=== PATIENT | male | born 1990 | race Two or more races ===

== ENCOUNTER 2019-01-17 00:08 | Emergency (ER) | payer BC, OTHER ==
[2019-01-17] MEDS ORDERED: Ibuprofen 600 MG Tab PO ONE (01:03)
--- NOTE | 2019-01-17 01:03 | EDM.PDOC ---
ED HPI GENERAL MEDICAL PROBLEM - General Chief Complaint: Upper Extremity Injury/Pain Stated Complaint: HAND INJURY Time Seen by Provider: 01/17/19 00:08 Source of Information: Reports: Patient History Limitations: Reports: No Limitations - History of Present Illness INITIAL COMMENTS - FREE TEXT/NARRATIVE: 28 y,o,w,m came to the ED due to pain at his right middle finger after he smashed his hand in a car door. Pt notice pain at his right middle finger and has pain bending it. No open wound. No swelling/edema. Nl CAP refill. Pt state, he feels occasionally "skin bulging out" at his right groin where he had a inguinal hernia repair i the past. The symptoms occur any when he is lifting heavy materials at work. Pt has no symptoms in his right groin now. No N/V/D no SOB or any other acute med issue. BP 126/87 RR 18 Pulse ox 98% on RA Temp 36.6 HR 84 Onset Date: 01/16/19 Onset Time: 21:00 Duration: Hour(s):, Constant Location: Reports: Upper Extremity, Right (middle finger) Quality: Reports: Ache, Dull, Pressure Severity: Mild Improves with: Reports: Rest Worsens with: Reports: Movement Context: Reports: Trauma Associated Symptoms: Reports: Other (S/p R ight inguinal hernia repair, wound discomfort) right hand mid finger Pain Score (Numeric/FACES): 8 - Related Data Allergies Allergy/AdvReac Type Severity Reaction Status Date / Time No Known Allergies Allergy Verified 05/29/18 07:50 Home Meds: Home Meds Acetaminophen/HYDROcodone [[place] 325-5 MG] 1 - 2 tab PO Q6H PRN #20 tab [Rx] Celecoxib [CeleBREX] 200 mg PO BID #10 cap 05/30/18 [Rx] Past Medical History - Past Health History Medical/Surgical History: Denies Medical/Surgical History HEENT History: Reports: Impaired Vision Cardiovascular History: Reports: None Respiratory History: Reports: None Gastrointestinal History: Reports: Gastritis Other Gastrointestinal History: STATES HAS HAD ULCER Genitourinary History: Reports: None Musculoskeletal History: Reports: Back Pain, Chronic Neurological History: Reports: None Psychiatric History: Reports: Anxiety Endocrine/Metabolic History: Reports: None Hematologic History: Reports: None Immunologic History: Reports: None Oncologic (Cancer) History: Reports: None Dermatologic History: Reports: None - Infectious Disease History Infectious Disease History: Reports: Chicken Pox - Past Surgical History Head Surgeries/Procedures: Reports: None GI Surgical History: Reports: None Social & Family History - Family History Family Medical History: Noncontributory - Tobacco Use Smoking Status *Q: Current Every Day Smoker Years of Tobacco use: 15 Packs/Tins Daily: 0.2 - Caffeine Use Caffeine Use: Reports: Soda Review of Systems - Review of Systems Review Of Systems: See Below Constitutional: Reports: No Symptoms Eyes: Reports: No Symptoms Ears: Reports: No Symptoms Nose: Reports: No Symptoms Mouth/Throat: Reports: No Symptoms Respiratory: Reports: No Symptoms Cardiovascular: Reports: No Symptoms GI/Abdominal: Reports: Other (discomfort R groin S/P inguinal hernia repair) Genitourinary: Reports: No Symptoms Musculoskeletal: Reports: Other (right middle finger pain) Skin: Reports: No Symptoms Neurological: Reports: No Symptoms Psychiatric: Reports: No Symptoms ED EXAM, GENERAL - Physical Exam Exam: See Below Exam Limited By: No Limitations General Appearance: Alert, WD/WN, Mild Distress Eye Exam: Bilateral Eye: Normal Inspection Ears: Normal External Exam, Normal Canal Ear Exam: Bilateral Ear: Auricle Normal Nose: Normal Inspection, Normal Mucosa, No Blood Throat/Mouth: Normal Lips, Normal Voice, No Airway Compromise Head: Atraumatic, Normocephalic Neck: Normal Inspection, Supple, Non-Tender, Full Range of Motion Respiratory/Chest: No Respiratory Distress, Lungs Clear, Normal Breath Sounds Cardiovascular: Normal Peripheral Pulses, Regular Rate, Rhythm, No Edema, No Gallop, No JVD, No Murmur, No Rub Peripheral Pulses: 2+: Radial (L) GI/Abdominal: Normal Bowel Sounds (Male) Exam: Other (tenerness right Groin S/P inguinal hernoa repair, well healed surgical scar) Rectal (Males) Exam: Deferred Back Exam: Normal Inspection, Full Range of Motion Extremities: Normal Inspection, Non-Tender, Normal Capillary Refill, Other ( pain right middlefinger with limitd ROM due to pain) Neurological: Alert, Oriented, CN II-XII Intact, Normal Cognition, Normal Gait Psychiatric: Normal Affect, Normal Mood Skin Exam: Warm, Dry, Intact, Normal Color, No Rash Lymphatic: No Adenopathy Course - Vital Signs Text/Narrative:: 28 y,o,w,m came to the ED due to pain at his right middle finger after he smashed his hand in a car door. Pt notice pain at his right middle finger and has pain bending it. No open wound. No swelling/edema. Nl CAP refill. Pt state, he feels occasionally "skin bulging out" at his right groin where he had a inguinal hernia repair i the past. The symptoms occur any when he is lifting heavy materials at work. Pt has no symptoms in his right groin now. No N/V/D no SOB or any other acute med issue. BP 126/87 RR 18 Pulse ox 98% on RA Temp 36.6 HR 84 PE: WNWD W M with right middle finger pain after trauma. Imaging: Right hand/middle finger: NAD, official repotrt is pending Labs: Not indicated Impression: Right middle finger sprain Tx: Ice, Motrin Reexam: Improved Plan: D/C with instructions. Last Recorded V/S: Last Vital Signs Temp 36.7 C 01/17/19 01:00 Pulse 70 01/17/19 01:00 Resp 17 01/17/19 01:00 BP 129/73 01/17/19 01:00 Pulse Ox 98 01/17/19 01:00 - Orders/Labs/Meds Orders: Active Orders 24 hr Category Date Time Status Hand Comp Min 3V Rt [CR] Stat Exams 01/17/19 00:17 Taken Meds: Medications Discontinued Medications Generic Name Dose Route Start Last Admin Trade Name Freq PRN Reason Stop Dose Admin Ibuprofen 600 mg 01/17/19 01:03 01/17/19 01:09 Motrin PO 01/17/19 01:04 600 mg ONETIME ONE Administration Departure - Departure Time of Disposition: 00:58 Disposition: Home, Self-Care 01 Condition: Good Clinical Impression: Sprain of right middle finger Qualifiers: Encounter type: initial encounter Sprain of finger site: interphalangeal joint Qualified Code(s): S63.632A - Sprain of interphalangeal joint of right middle finger, initial encounter - Discharge Information Instructions: Finger Sprain, Adult, [id number] Referrals: PCP,None [Primary Care Provider] - Tony Singleton MD [Physician] - Forms: ED Department Discharge, ED Return to Work/School Form Additional Instructions: Please apply ice to right hand, please take Motrin for pain, elevation, rest. Avoid heavy lifting using your right hand. Please f/u with Dr. Singleton regarding your right inguinal hernia repair in the past. Please come back if your symptoms get worse acutely. - My Orders Last 24 Hours: My Active Orders 01/17/19 00:17 Hand Comp Min 3V Rt [CR] Stat - Assessment/Plan Last 24 Hours: My Active Orders 01/17/19 00:17 Hand Comp Min 3V Rt [CR] Stat
[2019-01-17 01:14] VITALS: BP 129/73; PULSE 70
--- NOTE | 2019-01-18 08:54 | CR ---
INDICATION: Pain, caught in a pickup door. RIGHT HAND: Three views of the right hand revealed no significant bone or joint abnormality - no fracture or dislocation. MTDD
== END 2019-01-17 01:10 | disposition home or self-care (01) ==
LOC: FB.ED 00:08
DX: S63.632A Sprain of interphalangeal joint of right middle finger, initial encounter (principal); F17.210 Nicotine dependence, cigarettes, uncomplicated; W23.0XXA Caught, crushed, jammed, or pinched between moving objects, initial encounter
CPT/HCPCS: 73130; 99283; A9270; 99282

== ENCOUNTER 2019-06-12 04:59 | Emergency (ER) | payer MEDICAID, OTHER ==
[2019-06-12] MEDS ORDERED: Lidocaine 2% 20 ML MDV INFILT ONE (05:00)
--- NOTE | 2019-06-12 05:23 | EDM.PDOC ---
ED HPI GENERAL MEDICAL PROBLEM - General Stated Complaint: HEAD INJURY Time Seen by Provider: 06/12/19 05:21 Source of Information: Reports: Patient History Limitations: Reports: No Limitations - History of Present Illness INITIAL COMMENTS - FREE TEXT/NARRATIVE: slipped on the curb,hit head on left upper eyebrow. No LOC. Complains of dizziness. No vomiting - Related Data Allergies Allergy/AdvReac Type Severity Reaction Status Date / Time No Known Allergies Allergy Verified 04/18/19 09:47 Home Meds: Home Meds Acetaminophen/HYDROcodone [[place] 325-5 MG] 1 - 2 tab PO Q6H PRN #20 tab [Rx] Celecoxib [CeleBREX] 200 mg PO BID #10 cap 05/30/18 [Rx] Past Medical History - Past Health History Medical/Surgical History: Denies Medical/Surgical History HEENT History: Reports: Impaired Vision Cardiovascular History: Reports: None Respiratory History: Reports: None Gastrointestinal History: Reports: Gastritis Other Gastrointestinal History: STATES HAS HAD ULCER Genitourinary History: Reports: None Musculoskeletal History: Reports: Back Pain, Chronic Neurological History: Reports: None Psychiatric History: Reports: Anxiety Endocrine/Metabolic History: Reports: None Hematologic History: Reports: None Immunologic History: Reports: None Oncologic (Cancer) History: Reports: None Dermatologic History: Reports: None - Infectious Disease History Infectious Disease History: Reports: Chicken Pox - Past Surgical History Head Surgeries/Procedures: Reports: None GI Surgical History: Reports: None Social & Family History - Family History Family Medical History: Noncontributory - Caffeine Use Caffeine Use: Reports: Soda ED ROS GENERAL - Review of Systems Review Of Systems: Comprehensive ROS is negative, except as noted in HPI. 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 As Tested, Oriented x 3 Skin: Normal Color, Other (2 cm lac to the eyebrow) ED LACERATION/WOUND & SUSHILA PROC - Laceration/Wound Repair Right Face Lac/wound length in cm: 2 Appearance: Superficial Distal NVT: Neuro & Vascular Intact Anesthetic Type: Local Local Anesthesia - Lidocaine (Xylocaine): 2% Plain, 2% with EPI Local Anesthetic Volume: 2cc Skin Prep: Chlorhexidine (Hibiciens), Saline Exploration/Debridement/Repair: In a Bloodless Field Suture Size: 5-0 Suture Type: Prolene Drain Placement: No Sterile Dressing Applied: Nurse Tetanus Status Addressed: Yes Complications: No Departure - Departure Time of Disposition: 08:07 Disposition: Home, Self-Care 01 Condition: Good Clinical Impression: Laceration of face - Discharge Information Instructions: Sutured Wound Care Referrals: PCP,None [Primary Care Provider] - Care Plan Goals: Keep wound clean and dry. Cover with band aid if desired. Have sutures removed at your clinic in 5 days. If any signs of infection, return to clinic or ER. Sepsis Event Note - Focused Exam Date Exam was Performed: 06/12/19 Time Exam was Performed: 08:06 - Problem List & Annotations (1) Laceration of face SNOMED Code(s): 412375397 Code(s): S01.81XA - LACERATION W/O FOREIGN BODY OF OTH PART OF HEAD, INIT ENCNTR Status: Acute Current Visit: Yes Qualifiers: Encounter type: initial encounter Qualified Code(s): S01.81XA - Laceration without foreign body of other part of head, initial encounter - Problem List Review Problem List Initiated/Reviewed/Updated: Yes - Assessment/Plan Plan: Remove sutures in 5 days
[2019-06-12 08:33] VITALS: BP 142/90; PULSE 90
== END 2019-06-12 05:50 | disposition home or self-care (01) ==
LOC: FB.ED 04:59
DX: S01.112A Laceration without foreign body of left eyelid and periocular area, initial encounter (principal); Z79.899 Other long term (current) drug therapy; W00.0XXA Fall on same level due to ice and snow, initial encounter
CPT/HCPCS: 12011; 99283; J2001

== ENCOUNTER 2019-06-17 20:58 | Emergency (ER) | payer SELFPAY ==
--- NOTE | 2019-06-17 21:15 | EDM.PDOC ---
ED HPI GENERAL MEDICAL PROBLEM - General Stated Complaint: REMOVE STITCHES Time Seen by Provider: 06/17/19 21:00 Source of Information: Reports: Patient History Limitations: Reports: No Limitations - History of Present Illness INITIAL COMMENTS - FREE TEXT/NARRATIVE: Patient presented to the ED for removal os suture and wound check. He had a laceration on the left eyebrow which was suture 5 days ago. 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 Respiratory History: Reports: None Gastrointestinal History: Reports: Gastritis Other Gastrointestinal History: STATES HAS HAD ULCER Genitourinary History: Reports: None Musculoskeletal History: Reports: Back Pain, Chronic Neurological History: Reports: None Psychiatric History: Reports: Anxiety Endocrine/Metabolic History: Reports: None Hematologic History: Reports: None Other Hematologic History: States he was jaundiced at . Immunologic History: Reports: None Oncologic (Cancer) History: Reports: None Dermatologic History: Reports: None - Infectious Disease History Infectious Disease History: Reports: Chicken Pox - Past Surgical History Head Surgeries/Procedures: Reports: None GI Surgical History: Reports: None Social & Family History - Family History Family Medical History: Noncontributory Endocrine/Metabolic: Reports: Other (See Below) Other Endocrine/Metabolic Family History: Grandparents with diabetes. - Caffeine Use Caffeine Use: Reports: Soda ED ROS GENERAL - Review of Systems Review Of Systems: See Below Constitutional: Reports: No Symptoms HEENT: Reports: No Symptoms Respiratory: Reports: No Symptoms Cardiovascular: Reports: No Symptoms Endocrine: Reports: No Symptoms GI/Abdominal: Reports: No Symptoms : Reports: No Symptoms Musculoskeletal: Reports: No Symptoms Skin: Reports: No Symptoms, Wound ED EXAM, SKIN/RASH Exam: See Below Exam Limited By: No Limitations General Appearance: Alert, No Apparent Distress Eye Exam: Bilateral Eye: PERRL Ears: Normal External Exam, Normal Canal, Hearing Grossly Normal Nose: Normal Inspection, Normal Mucosa Throat/Mouth: Normal Inspection, Normal Lips, Normal Teeth Head: Atraumatic, Normocephalic Neck: Normal Inspection, Supple, Non-Tender Respiratory/Chest: No Respiratory Distress, Lungs Clear, Normal Breath Sounds, No Accessory Muscle Use, Chest Non-Tender Cardiovascular: Normal Peripheral Pulses, Regular Rate, Rhythm, No Edema, No Gallop, No JVD, No Murmur, No Rub GI/Abdominal: Normal Bowel Sounds, Soft, Non-Tender, No Organomegaly, No Distention, No Abnormal Bruit, No Mass, Pelvis Stable (Male) Exam: No Hernia Psychiatric: Normal Affect, Normal Mood Skin: Warm, Wound/Incision (the wound on the left eyebrow is healing well) Course - Vital Signs Text/Narrative:: reassurance it'stoo soon to removw the sutue Departure - Departure Time of Disposition: 21:10 Disposition: Home, Self-Care 01 Condition: Good Clinical Impression: Visit for wound check - Discharge Information Instructions: Wound Check Referrals: PCP,None [Primary Care Provider] - Additional Instructions: Follow up with your clinic in 5-7 more days for removal of suture Sepsis Event Note - Focused Exam Date Exam was Performed: 06/17/19 Time Exam was Performed: 21:34
[2019-06-18 00:33] VITALS: BP 137/72; PULSE 73
== END 2019-06-17 21:20 | disposition home or self-care (01) ==
LOC: FB.ED 20:58
DX: S01.112D Laceration without foreign body of left eyelid and periocular area, subsequent encounter (principal); W00.0XXD Fall on same level due to ice and snow, subsequent encounter
CPT/HCPCS: 99281; 99283

== ENCOUNTER 2019-10-04 07:01 | Emergency (ER) | payer SELFPAY ==
[2019-10-04 07:17] VITALS: BP 154/90; PULSE 83
--- NOTE | 2019-10-04 07:57 | EDM.PDOC ---
ED HPI GENERAL MEDICAL PROBLEM - General Chief Complaint: Lower Extremity Injury/Pain Stated Complaint: RT KNEE PAIN AND RT SHOULDER PAIN Time Seen by Provider: 10/04/19 07:30 Source of Information: Reports: Patient History Limitations: Reports: No Limitations - History of Present Illness INITIAL COMMENTS - FREE TEXT/NARRATIVE: Sarah comes into [facility] ED with pain in R knee following an accident yesterday when a dresser he was moving upstairs shifted and came back onto him, knocking him to the landing. He estimates he lost 2 steps with the mistep, twisting R knee as he readjusted the load. He has been experiencing pain since, with climbing and descending maneuver. There is no visible swelling or discoloration. Of interest, his R shoulder is also painful, although he had had issues with dislocation since teenage years. He has taken no meds. 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 Respiratory History: Reports: None Gastrointestinal History: Reports: Gastritis Other Gastrointestinal History: STATES HAS HAD ULCER Genitourinary History: Reports: None Musculoskeletal History: Reports: Back Pain, Chronic, Other (See Below) ( chronic R shoulder pain, dislocation as a teenager) Neurological History: Reports: None Psychiatric History: Reports: Anxiety Endocrine/Metabolic History: Reports: None Hematologic History: Reports: None Other Hematologic History: States he was jaundiced at . Immunologic History: Reports: None Oncologic (Cancer) History: Reports: None Dermatologic History: Reports: None - Infectious Disease History Infectious Disease History: Reports: Chicken Pox - Past Surgical History Head Surgeries/Procedures: Reports: None GI Surgical History: Reports: None Social & Family History - Family History Family Medical History: Noncontributory Endocrine/Metabolic: Reports: Other (See Below) Other Endocrine/Metabolic Family History: Grandparents with diabetes. - Tobacco Use Smoking Status *Q: Current Every Day Smoker Years of Tobacco use: 10 Packs/Tins Daily: 0.2 - Caffeine Use Caffeine Use: Reports: Soda - Recreational Drug Use Recreational Drug Use: Yes Recreational Drug Type: Reports: Marijuana/Hashish Recreational Drug Use Frequency: Weekly Review of Systems - Review of Systems Review Of Systems: Comprehensive ROS is negative, except as noted in HPI. ED EXAM, GENERAL - Physical Exam Exam: See Below Exam Limited By: No Limitations General Appearance: Alert, WD/WN, Anxious, Mild Distress Head: Atraumatic, Normocephalic Neck: Normal Inspection, Supple, Non-Tender, Full Range of Motion Respiratory/Chest: Lungs Clear, Chest Non-Tender Cardiovascular: Regular Rate, Rhythm GI/Abdominal: Soft, Non-Tender, No Organomegaly, No Distention, No Mass (Male) Exam: Deferred Rectal (Males) Exam: Deferred Back Exam: Normal Inspection Extremities: Normal Inspection, Normal Range of Motion, No Pedal Edema, Arm Pain (R shoulder: limited tenderness of lateral and posterior deltoid, guarding with FROM, cross over test neg), Leg Pain (R leg: tenderness at lateral joint line, no laxity to maneuver; no joint effusion; limited tenderness at insertion of biceps femoris; Lachmans neg, Juan neg) Neurological: Alert, Oriented, CN II-XII Intact, No Motor/Sensory Deficits Psychiatric: Normal Affect, Anxious Skin Exam: Warm, Dry, Intact, Normal Color Lymphatic: No Adenopathy Course - Vital Signs Text/Narrative:: No meds were dispensed during ED visit. A note for work today will be provided. Last Recorded V/S: Last Vital Signs Temp 36.9 C 10/04/19 07:16 Pulse 83 10/04/19 07:16 Resp 16 10/04/19 07:16 BP 154/90 H 10/04/19 07:16 Pulse Ox 98 10/04/19 07:16 Departure - Departure Time of Disposition: 07:50 Disposition: Home, Self-Care 01 Condition: Fair Clinical Impression: Sprain of knee - Discharge Information *PRESCRIPTION DRUG MONITORING PROGRAM REVIEWED*: Not Applicable *COPY OF PRESCRIPTION DRUG MONITORING REPORT IN PATIENT VIRIDIANA: Not Applicable Referrals: PCP,None [Primary Care Provider] - Forms: ED Department Discharge Sepsis Event Note - Evaluation Sepsis Screening Result: No Definite Risk - Focused Exam Vital Signs: Vital Signs Temp Pulse Resp BP Pulse Ox 10/04/19 07:16 36.9 C 83 16 154/90 H 98 Date Exam was Performed: 10/04/19 Time Exam was Performed: 07:51 - Problem List & Annotations (1) Sprain of knee SNOMED Code(s): 94980776 Code(s): S83.90XA - SPRAIN OF UNSPECIFIED SITE OF UNSPECIFIED KNEE, INIT ENCNTR Status: Acute Annotation/Comment:: Sprain of R knee, possible biceps femoris strain. I suggested AROM, wt bearing permitted, NSIADs as directed, and a note for work today was provided. (2) Strain of right shoulder SNOMED Code(s): 741376250 Code(s): S46.911A - STRAIN UNSP MUSC/FASC/TEND AT SHLDR/UP ARM, RIGHT ARM, INIT Status: Acute Annotation/Comment:: AROM, NSAIDs, and activity as tolerated. - Problem List Review Problem List Initiated/Reviewed/Updated: Yes - Assessment/Plan Plan: Follow up with PCP if needed.
== END 2019-10-04 08:10 | disposition home or self-care (01) ==
LOC: FB.ED 07:01
DX: S83.91XA Sprain of unspecified site of right knee, initial encounter (principal); F17.210 Nicotine dependence, cigarettes, uncomplicated; X50.1XXA Overexertion from prolonged static or awkward postures, initial encounter
CPT/HCPCS: 99282; 99283

== ENCOUNTER 2020-09-30 05:44 | Emergency (ER) | payer MEDICAID, OTHER ==
[2020-09-30] MEDS ORDERED: Acetaminophen 500 MG Tab PO ONE (06:22)
[2020-09-30] MEDS ORDERED: Cyclobenzaprine 10 MG Tab PO ONE (06:22)
[2020-09-30] MEDS ORDERED: Ibuprofen 800 MG Tab PO ONE (06:22)
--- NOTE | 2020-09-30 07:31 | EDM.PDOC ---
ED HPI GENERAL MEDICAL PROBLEM - General Chief Complaint: Neck Problem Stated Complaint: HEAD INJURY Time Seen by Provider: 09/30/20 06:00 Source of Information: Reports: Patient History Limitations: Reports: No Limitations - History of Present Illness INITIAL COMMENTS - FREE TEXT/NARRATIVE: patient presented to the ED because of a head and neck injury. He was helping to lift a 20 lb metal 2 days ago which fell on the right side of his head and neck. He woke up this morning with muscle spasms. 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 Respiratory History: Reports: None Gastrointestinal History: Reports: Gastritis Other Gastrointestinal History: STATES HAS HAD ULCER Genitourinary History: Reports: None Musculoskeletal History: Reports: Back Pain, Chronic, Other (See Below) Neurological History: Reports: None Psychiatric History: Reports: Anxiety Endocrine/Metabolic History: Reports: None Hematologic History: Reports: None Other Hematologic History: States he was jaundiced at . Immunologic History: Reports: None Oncologic (Cancer) History: Reports: None Dermatologic History: Reports: None - Infectious Disease History Infectious Disease History: Reports: Chicken Pox - Past Surgical History Head Surgeries/Procedures: Reports: None GI Surgical History: Reports: None Social & Family History - Family History Family Medical History: No Pertinent Family History Endocrine/Metabolic: Reports: Other (See Below) Other Endocrine/Metabolic Family History: Grandparents with diabetes. - Tobacco Use Tobacco Use Status *Q: Current Every Day Tobacco User Years of Tobacco use: 5 Packs/Tins Daily: 0.3 - Caffeine Use Caffeine Use: Reports: Soda - Recreational Drug Use Recreational Drug Use: Yes Drug Use in Last 12 Months: Yes Recreational Drug Type: Reports: Marijuana/Hashish ED ROS PEDIATRIC - Review of Systems Review Of Systems: See Below Constitutional: Reports: No Symptoms HEENT: Reports: No Symptoms Respiratory: Reports: No Symptoms Cardiovascular: Reports: No Symptoms Endocrine: Reports: No Symptoms GI/Abdominal: Reports: No Symptoms : Reports: No Symptoms Musculoskeletal: Reports: Muscle Pain, Muscle Stiffness Skin: Reports: No Symptoms Neurological: Reports: No Symptoms Psychiatric: Reports: No Symptoms Hematologic/Lymphatic: Reports: No Symptoms ED EXAM, GENERAL (PEDS) - Physical Exam Exam: See Below Exam Limited By: No Limitations General Appearance: WD/WN, No Apparent Distress Ear Exam (Abbreviated): Normal External Exam, Normal Canal, Hearing Grossly Normal Nose Exam: Normal Inspection, Normal Mucousa, No Blood Mouth/Throat: Normal Inspection, Normal Gums Head: Atraumatic, Normocephalic Neck: Normal Inspection, Supple, Non-Tender, Full Range of Motion Respiratory/Chest: No Respiratory Distress, Lungs Clear, Normal Breath Sounds, No Accessory Muscle Use, Chest Non-Tender Cardiovascular: Normal Peripheral Pulses, Regular Rate, Rhythm, No Edema, No Gallop, No JVD, No Murmur, No Rub GI/Abdominal Exam: Normal Bowel Sounds, No Organomegaly Back Exam: Normal Inspection, Full Range of Motion Extremities: Normal Inspection, Normal Range of Motion, Non-Tender Neurological: Alert, Oriented, CN II-XII Intact Psychiatric: Normal Affect Course - Vital Signs Text/Narrative:: Heand and C-spine CT-negative Ibuprofen 800 mg po x1 Tylenol 1000 mg PO x 1 Flexeril 10 mg PO x1 Last Recorded V/S: Last Vital Signs Temp 36.2 C 09/30/20 07:40 Pulse 80 09/30/20 07:40 Resp 18 09/30/20 07:40 BP 126/68 09/30/20 07:40 Pulse Ox 98 09/30/20 07:40 - Orders/Labs/Meds Orders: Active Orders 24 hr Category Date Time Status Cervical Spine wo Cont [CT] Stat Exams 09/30/20 06:20 Taken Head wo Cont [CT] Stat Exams 09/30/20 06:20 Taken Meds: Medications Discontinued Medications Generic Name Dose Route Start Last Admin Trade Name Freq PRN Reason Stop Dose Admin Acetaminophen 1,000 mg 09/30/20 06:22 09/30/20 06:35 Acetaminophen 500 Mg Tab PO 09/30/20 06:23 1,000 mg ONETIME ONE Administration Cyclobenzaprine HCl 10 mg 09/30/20 06:22 09/30/20 06:35 Cyclobenzaprine 10 Mg Tab PO 09/30/20 06:23 10 mg ONETIME ONE Administration Ibuprofen 800 mg 09/30/20 06:22 09/30/20 06:35 Ibuprofen 800 Mg Tab PO 09/30/20 06:23 800 mg ONETIME ONE Administration Departure - Departure Time of Disposition: 07:35 Disposition: Home, Self-Care 01 Condition: Good Clinical Impression: Closed head injury, Musculoskeletal pain - Discharge Information Prescriptions: Cyclobenzaprine [Flexeril] 10 mg PO Q8H PRN #30 tab PRN Reason: Spasms Ibuprofen 800 mg PO Q8H PRN #30 tablet PRN Reason: Pain Instructions: Head Injury, Adult, [id number], Musculoskeletal Pain Referrals: PCP,None [Primary Care Provider] - Forms: ED Department Discharge Additional Instructions: Please read discharge instructions on head injury and musculoskeletal pain Apply ice or heat whichever you prefer Take ibuprofen 800 mg with tylenol 1000 mg every 8 hours as needed for pain Flexeril 10 mg every 8 hours as needed for spasms Follow up as needed Sepsis Event Note (ED) - Evaluation Sepsis Screening Result: No Definite Risk - Focused Exam Vital Signs: Vital Signs Temp Pulse Resp BP Pulse Ox 09/30/20 07:40 36.2 C 80 18 126/68 98 09/30/20 05:53 36.6 C 72 16 131/90 96 - My Orders Last 24 Hours: My Active Orders 09/30/20 06:20 Cervical Spine wo Cont [CT] Stat Head wo Cont [CT] Stat - Assessment/Plan Last 24 Hours: My Active Orders 09/30/20 06:20 Cervical Spine wo Cont [CT] Stat Head wo Cont [CT] Stat
[2020-09-30 08:44] VITALS: BP 126/68; PULSE 80
== END 2020-09-30 07:42 | disposition home or self-care (01) ==
LOC: FB.ED 05:44
DX: S09.90XA Unspecified injury of head, initial encounter (principal); M54.2 Cervicalgia; Z72.0 Tobacco use; W20.8XXA Other cause of strike by thrown, projected or falling object, initial encounter
CPT/HCPCS: 70450; 72125; 99283; A9270

== ENCOUNTER 2021-08-29 22:55 | Emergency (ER) | payer SELFPAY ==
[2021-08-29 23:08] VITALS: BP 144/68; PULSE 71
[2021-08-29] MEDS ORDERED: Alum Hydroxide/Mag Hydroxide 15 ML, Lidocaine 2% 15 ML PO ONE ×2 (23:24)
== END 2021-08-30 01:53 | disposition home or self-care (01) ==
LOC: FB.ED 22:55
DX: R07.89 Other chest pain (principal); K21.9 Gastro-esophageal reflux disease without esophagitis
CPT/HCPCS: 36415; 71046; 80053; 84484; 85025; 93005; 93010; 99282; 99285; A9270

== ENCOUNTER 2021-10-07 09:14 | Emergency (ER) | payer SELFPAY ==
[2021-10-07] MEDS ORDERED: Lidocaine 1% with EPINEPHrine 1:100,000 20 ML MDV INFILT ONE (09:15)
[2021-10-07 09:28] VITALS: BP 140/85; PULSE 74
== END 2021-10-07 09:55 | disposition home or self-care (01) ==
LOC: FB.ED 09:14
DX: S61.210A Laceration without foreign body of right index finger without damage to nail, initial encounter (principal); F17.210 Nicotine dependence, cigarettes, uncomplicated; W25.XXXA Contact with sharp glass, initial encounter
CPT/HCPCS: 12001; 99281; 99282-25

== ENCOUNTER 2021-12-30 21:09 | Emergency (ER) | payer SELFPAY ==
[2021-12-30] MEDS ORDERED: traMADol 50 MG Tab PO ONE (21:10)
[2021-12-30 23:20] VITALS: BP 143/85; PULSE 60
== END 2021-12-30 22:38 | disposition home or self-care (01) ==
LOC: FB.ED 21:09
DX: S62.663A Nondisplaced fracture of distal phalanx of left middle finger, initial encounter for closed fracture (principal); W23.1XXA Caught, crushed, jammed, or pinched between stationary objects, initial encounter; Y99.0 Civilian activity done for income or pay
CPT/HCPCS: 73140-F2; 99281; 99283; A9270-GY

== ENCOUNTER 2022-09-01 09:20 | Emergency (ER) | payer SELFPAY ==
[2022-09-01] MEDS ORDERED: Diphtheria,Pertussis(Acell),Tetanus Vaccine 0.5 ML Syringe IM ONE (09:44)
[2022-09-01 09:51] LABS: ESTIMATED GFR 74 mL/min (>60)
[2022-09-01] MEDS ORDERED: Acetaminophen 500 MG Tab PO ONE (10:44)
[2022-09-01] MEDS ORDERED: Ibuprofen 800 MG Tab PO ONE (10:44)
[2022-09-01] MEDS ORDERED: Meclizine 25 MG Tab PO ONE (10:44)
[2022-09-01 11:39] VITALS: BP 135/82; PULSE 67
== END 2022-09-01 11:31 | disposition home or self-care (01) ==
LOC: FB.ED 09:20
DX: S06.9X1A Unspecified intracranial injury with loss of consciousness of 30 minutes or less, initial encounter (principal); S01.81XA Laceration without foreign body of other part of head, initial encounter; R55 Syncope and collapse; E66.9 Obesity, unspecified; Z68.30 Body mass index [BMI] 30.0-30.9, adult; Z23 Encounter for immunization; W22.09XA Striking against other stationary object, initial encounter
CPT/HCPCS: 12013; 36415; 70450; 80053; 82947; 84484; 85025; 90471; 90715; 93005; 99284; A9270; 93010; 99283

== ENCOUNTER 2023-02-05 21:15 | Emergency (ER) | payer SELFPAY ==
[2023-02-05] MEDS ORDERED: Ketorolac 30 MG/ML SDV IM ONE (21:52)
[2023-02-05 22:09] LABS: CORONAVIRUS COVID-19 NAA NEGATIVE (NEGATIVE); INFLUENZA A NAA NEGATIVE (NEGATIVE); INFLUENZA B NAA NEGATIVE (NEGATIVE); RESPIRATORY SYNCYTIAL VIR NAA NEGATIVE (NEGATIVE)
[2023-02-06 01:14] VITALS: BP 120/78; PULSE 71
== END 2023-02-05 23:10 | disposition home or self-care (01) ==
LOC: FB.ED 21:15
DX: J06.9 Acute upper respiratory infection, unspecified (principal); R07.89 Other chest pain; E66.9 Obesity, unspecified; Z68.30 Body mass index [BMI] 30.0-30.9, adult
CPT/HCPCS: 0241U; 36415; 71046; 85379; 93005; 96372; 99285; J1885

== ENCOUNTER 2023-03-28 19:48 | Emergency (ER) | payer SELFPAY ==
[2023-03-28 20:43] VITALS: BP 116/78; PULSE 76
[2023-03-28] MEDS ORDERED: Acetaminophen 500 MG Tab PO ONE (21:10)
[2023-03-28] MEDS ORDERED: Ketorolac 30 MG/ML SDV IM ONE (21:10)
== END 2023-03-28 21:25 | disposition home or self-care (01) ==
LOC: FB.ED 19:48
DX: S46.912A Strain of unspecified muscle, fascia and tendon at shoulder and upper arm level, left arm, initial encounter (principal); E66.9 Obesity, unspecified; Z68.30 Body mass index [BMI] 30.0-30.9, adult; X50.3XXA Overexertion from repetitive movements, initial encounter
CPT/HCPCS: 96372; 99283; A9270; J1885

== ENCOUNTER 2023-10-08 19:43 | Emergency (ER) | payer SELFPAY ==
[2023-10-08] MEDS ORDERED: Naproxen 250 MG Tab PO ONE (19:44)
[2023-10-08] MEDS ORDERED: Cyclobenzaprine 10 MG Tab PO ONE (19:44)
[2023-10-08 19:56] VITALS: BP 133/83; PULSE 73
[2023-10-08] MEDS: Ketorolac 30 MG/ML SDV IM ONE (20:01)
== END 2023-10-08 20:18 | disposition home or self-care (01) ==
LOC: FB.ED 19:43
DX: M62.830 Muscle spasm of back (principal); E66.9 Obesity, unspecified; Z68.30 Body mass index [BMI] 30.0-30.9, adult
CPT/HCPCS: 96372; 99283; A9270-GY; J1885

== ENCOUNTER 2024-01-10 06:01 | Emergency (ER) | payer SELFPAY ==
[2024-01-10 06:27] VITALS: BP 128/85; PULSE 76
[2024-01-10] MEDS: Ketorolac 30 MG/ML SDV IM ONE (07:15)
== END 2024-01-10 08:27 | disposition home or self-care (01) ==
LOC: FB.ED 06:01
DX: F44.9 Dissociative and conversion disorder, unspecified (principal); E66.9 Obesity, unspecified; Z87.891 Personal history of nicotine dependence; Z91.018 Allergy to other foods
CPT/HCPCS: 96372; 99283; J1885

== ENCOUNTER 2025-02-11 20:21 | Emergency (ER) | payer SELFPAY ==
[2025-02-11 21:37] VITALS: BP 131/82; PULSE 116
== END 2025-02-11 21:07 | disposition home or self-care (01) ==
LOC: FB.ED 20:21
DX: Z77.098 Contact with and (suspected) exposure to other hazardous, chiefly nonmedicinal, chemicals (principal); Z79.899 Other long term (current) drug therapy; Z91.018 Allergy to other foods
CPT/HCPCS: 99283